=== PATIENT | male | born 1955 | race American Indian/Alaskan Native ===

== ENCOUNTER 2016-09-15 23:27 | Emergency (ER) | payer OTHER ==
[2016-09-16 00:21] LABS: Basophils % (Auto) 0.5 % (0.0-1.8); Eosinophils % (Auto) 1.6 % (0.0-4.3); Mean Corpuscular HGB Conc 31 % (32-34); Mean Corpuscular Volume 73 fl (84-94); Platelet Count 163 K/mm3 (140-440); Red Blood Count 5.57 M/mm3 (3.65-5.03); Red Cell Distribution Width 17.8 % (13.2-15.2); White Blood Count 5.4 K/mm3 (4.5-11.0)
[2016-09-16 00:25] LABS: Hematocrit 40.4 % (35.5-45.6); Hemoglobin 12.4 gm/dl (11.8-15.2); Mean Corpuscular Hemoglobin 22 pg (28-32)
[2016-09-16 00:37] LABS: Anion Gap 17 mmol/L; BUN/Creatinine Ratio 16.66; Blood Urea Nitrogen 10 mg/dL (9-20); Calcium 8.9 mg/dL (8.4-10.2); Carbon Dioxide 26 mmol/L (22-30); Chloride 97.9 mmol/L (98-107); Glucose 112 mg/dL (75-100); Potassium 4.3 mmol/L (3.6-5.0); Sodium 137 mmol/L (137-145)
[2016-09-16 01:49] LABS: Bilirubin,Urine NEG (Negative); Blood,Urine MOD (Negative); Ketones,Urine NEG (Negative); Leukocyte Esterase,Urine NEG (Negative); Nitrite,Urine NEG (Negative); Urobilinogen,Urine < 2.0 mg/dL (<2.0)
[2016-09-16] MEDS ORDERED: CATAPRES PO ONE (01:52)
[2016-09-16] MEDS ORDERED: MORPHINE IV ONE (03:12)
[2016-09-16] MEDS ORDERED: ZOFRAN IV ONE (03:12)
[2016-09-16] MEDS ORDERED: ZOFRAN ONE (03:13)
[2016-09-16] MEDS ORDERED: MORPHINE ONE ×2 (03:14)
[2016-09-16] MEDS ORDERED: NACL ONE (05:21)
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
[2016-09-16] MEDS ORDERED: APRESOLINE IV ONE (06:41)
--- NOTE | 2016-09-16 08:28 | Ultrasound Report ---
ULTRASOUND RENAL INDICATION: Flank pain. COMPARISON: CT from earlier today. FINDINGS: Renal sonography limited due to patient's body habitus, though suggests top normal/borderline increased renal cortical echogenicity. Grossly preserved contours. No hydronephrosis. Few small, subcentimeter bilateral renal cysts/CT hypodensities not visualized sonographically. Slight diffuse imaged hepatic coarsening. RIGHT KIDNEY measures 9.5 x 4.8 x 4.8 cm with cortical thickness of 1.4 cm. LEFT KIDNEY estimated at 9 x 5.3 x 5.6 cm with cortical thickness of 1.5 cm. URINARY BLADDER distention and assessment limited, though grossly unremarkable, in so far seen. CONCLUSION: Slight underlying medical renal disease not excluded sonographically without acute renal abnormality. Please correlate. Thank you for the opportunity to participate in this patient's care.
--- NOTE | 2016-09-16 10:20 | Admit Criteria Form ---
Admission Criteria Documentation: ABDOMINAL PAIN Clinical Indications for Admission to Inpatient Care (Place 'X' for any and all applicable criteria): Admission is indicated for ANY ONE of the following(1)(2)(3)(4)(5): [ X]I. Inpatient admission required rather than observation care (Also use Abdominal Pain: Observation Care, as appropriate) because of ANY ONE of the following: [ ]a) Severe pain requiring acute inpatient management [ ]b) Identification of etiology/finding that requires inpatient care (eg, aortic dissection, free air) [ ]c) Absent bowel sounds with complete ileus(6) [ ]d) Suspected toxic megacolon [ ]e) Severe electrolyte abnormalities requiring inpatient care [ ]f) High fever or infection requiring inpatient admission as indicated by ANY ONE of following(7)(8): [ ] i) Appropriate outpatient or observational care antimicrobial treatment unavailable, not effective, or not feasible [ ] ii) Documented bacteremia [ ] iii) Temperature > 104.9 degrees F (oral) [ ] iv) T >103.1 F (oral) or < 96.8 F(rectal) that does not respond to all emergency treatment measures [ ]g) Signs of intestinal obstruction [B] [ ]h) Hemodynamic instability [ ]i) IV fluid to replace significant ongoing losses (greater than 3 L/m2 per day) (12)(13) [ ]j) Percutaneous or open drainage (eg, abscess, biliary tract ) procedures [ ]k) Parenteral nutrition regimen that must be implemented on inpatient basis [X ]l) Other condition,treatment or monitoring requiring inpatient admission. [ ]II. Peritoneal signs present [ ]III. Surgery needed that cannot be performed on an ambulatory basis. [ ]IV. Evaluation requires patient to not eat or drink for extended period ( eg, more than 24 hours). [ ]V. Contraindications and/or Inappropriate clinical situations for Observational Care in patients with abdominal pain, when ANY ONE of the following is required: [ ]a) Thorough evaluation is required to prevent catastrophic events due to delays in diagnosing (e.g.Mesenteric ischemia) 1,3 [ ]b) Patient with severe pathology or with chronic symptoms unlikely to improve in the ED stay (3) [ ]. General contraindications and/or Inappropriate clinical situations for Observational Care in patients with abdominal pain, when ANY ONE of the following is required: [ ]a) Prediction of prolongation of LOS based on ANY ONE of the following may be considered as a contraindication for observational care 2, 3, 4, 5, 6, 7, 8, 9, 10, 11 [ ]i) Age > 65 yrs. [ ]ii) Patient arriving by ambulance [ ]iii) Patient with high acuity [ ]iv) Patient requiring vital sign monitoring [ ]v) Patient on IV medication [ ]b) Systolic blood pressures 180mmHg 3,12 [ ]c) Patient with altered mental status including delirium and other alteration of consciousness, (3) [ ]d) Patient whose discharge disposition will be to a [facility] home or rehabilitation home should not be managed in Emergency Department Observation Unit. CMS rule requires 3 days hospital stay before such placement.3,13 [ ]e) Patient with failure to thrive due to broad array of etiologies 3,16,17 [ ]f) Inability to ambulate 3,14 Extended stay beyond goal length of stay may be needed for(2)(3): [ ]a) Persistent abdominal pain with suspected intra-abdominal process [ ]b) Diagnosed condition requiring continued stay (e.g., pancreatitis, complicated diverticulitis) [ ]c) Surgery (e.g., colectomy) The original [email or web address] content created by [employer] has been revised. The portions of the content which have been revised are identified through the use of italic text or in bold, and [facility] has neither reviewed nor approved the modified material.All other unmodified content is copyright [email or web address]. Please see references footnoted in the original [email or web address] edition 2016
[2016-09-16] MEDS: VASOTEC IV ONE ×2 (10:54→10:55)
[2016-09-16 11:04] VITALS: BP 210/99
== END 2016-09-16 11:12 | disposition left against medical advice (07) ==
LOC: ED 23:27
DX: R10.30 Lower abdominal pain, unspecified (principal); I10 Essential (primary) hypertension; R00.1 Bradycardia, unspecified
CPT/HCPCS: 36415; 74177; 76770; 80048; 81001; 85025; 96374; 96375; 99284; J0360; J2270; J2405; Q9967

== ENCOUNTER 2019-10-31 10:56 | Emergency (ER) | payer SELFPAY ==
[2019-10-31] MEDS ORDERED: dexAMETHasone 20 MG/5 ML VIAL IV ONE (12:33)
[2019-10-31] MEDS ORDERED: CLINDAMYCIN 600 MG/50 mL 600 MG/50 ML BAG IV ONE (12:34)
--- NOTE | 2019-10-31 12:34 | Event Note ---
ED Screening Note Date of service: 10/31/19 Time: 12:31 ED Screening Note: This is a 64-year-old male presents the ED with right hand swelling and pain that began yesterday. Patient denies injury but states the swelling just began yesterday after he threw out a carpet. This initial assessment/diagnostic orders/clinical plan/treatment(s) is/are subject to change based on patients health status, clinical progression and re- assessment by fellow clinical providers in the ED. Further treatment and workup at subsequent clinical providers discretion. Patient/guardian urged not to elope from the ED as their condition may be serious if not clinically assessed and managed. Initial orders include: X-ray, IV clindamycin, Decadron CC
--- NOTE | 2019-10-31 13:15 | XRay Report ---
RIGHT HAND 2 VIEWS INDICATION / CLINICAL INFORMATION: swelling, pain COMPARISON: None available. FINDINGS: BONES / JOINT(S): No acute fracture or subluxation. There is mild degenerative change in the thumb, s econd, and third MCP joint. There is mild joint space narrowing and osteophyte formation. There is mi ld generative change in several the interphalangeal joints. SOFT TISSUES: No significant abnormality. ADDITIONAL FINDINGS: None. Signer Name: Bulmaro Lester MD Signed: 10/31/2019 1:11 PM Workstation Name: [id number]
[2019-10-31] MEDS ORDERED: KETOROLAC 30 MG/1 ML INJ IM ONE (13:44)
[2019-10-31 14:28] LABS: Basophils # (Auto) 0.1 K/mm3 (0.0-0.1); Basophils % (Auto) 0.9 % (0.0-1.8); Eosinophils # (Auto) 0.1 K/mm3 (0.0-0.4); Eosinophils % (Auto) 1.5 % (0.0-4.3); Hematocrit 33.7 % (35.5-45.6); Hemoglobin 10.3 gm/dl (11.8-15.2); Lymphocytes # (Auto) 1.8 K/mm3 (1.2-5.4); Lymphocytes % (Auto) 23.3 % (13.4-35.0); Mean Corpuscular HGB Conc 31 % (32-34); Mean Corpuscular Volume 84 fl (84-94); Monocytes # (Auto) 0.7 K/mm3 (0.0-0.8); Monocytes % (Auto) 9.5 % (0.0-7.3); Platelet Count 298 K/mm3 (140-440); Red Blood Count 4.03 M/mm3 (3.65-5.03); Red Cell Distribution Width 16.6 % (13.2-15.2)
--- NOTE | 2019-10-31 14:40 | Emergency Department Report ---
ED Upper Extremity Inj HPI - General Chief Complaint: Extremity Problem,Nontraumatic Stated Complaint: BUG BITE Time Seen by Provider: 10/31/19 13:35 Source: patient Mode of arrival: Ambulatory Limitations: No Limitations - History of Present Illness Initial Comments: This is a 64-year-old male nontoxic, well nourished in appearance, no acute signs of distress presents to the ED with c/o of redness and pain with some swelling to right hand. Stated is unsure if something bite him. Patient denies any pus or drainage. Denies decreased ROM. Patient denies any fever, chills, nausea, vomiting, chest pain, shortness of breath, headache or stiff neck. Patient denies any allergies. PMH includes HTN and has missed his dose of lisinopril. MD Complaint: Injury to:: right, hand -: days(s) Other Extremity Injury: Hand: Right Severity scale (0 -10): 8 Improves With: immobilization Worsens With: movement of extremity Associated Symptoms: denies other symptoms. denies: weakness, numbness, neck pain, suspects foreign body, nausea/vomiting, heard/felt popping sensat - Related Data Home Medications Medication Instructions Recorded Confirmed Last Taken Buprenorphine HCl/Naloxone HCl 4 film SL QDAY 09/16/16 09/16/16 Unknown [Suboxone 12 mg-3 mg SL Film] Doxepin [SINEquan] 75 mg PO QHS 09/16/16 09/16/16 09/15/16 Furosemide [Lasix] 20 mg PO QDAY 09/16/16 09/16/16 09/15/16 lisinopriL [Zestril] 5 mg PO QDAY 09/16/16 09/16/16 09/15/16 Previous Rx's Medication Instructions Recorded Last Taken Type Clindamycin [Clindamycin CAP] 300 mg PO Q8H #21 cap 10/31/19 Unknown Rx Naproxen 500 mg PO Q12H PRN #12 tablet 10/31/19 Unknown Rx Allergies Allergy/AdvReac Type Severity Reaction Status Date / Time No Known Allergies Allergy Verified 09/15/16 23:49 ED Review of Systems ROS: Stated complaint: BUG BITE Other details as noted in HPI Constitutional: denies: chills, fever Eyes: denies: eye pain, eye discharge, vision change ENT: denies: ear pain, throat pain Respiratory: denies: cough, shortness of breath, wheezing Cardiovascular: denies: chest pain, palpitations Endocrine: no symptoms reported Gastrointestinal: denies: abdominal pain, nausea, diarrhea Genitourinary: denies: urgency, dysuria Musculoskeletal: denies: back pain, joint swelling, arthralgia Skin: denies: rash, lesions Neurological: denies: headache, weakness, paresthesias Psychiatric: denies: anxiety, depression Hematological/Lymphatic: denies: easy bleeding, easy bruising ED Past Medical Hx - Past Medical History Previous Medical History?: Yes Hx Hypertension: Yes Additional medical history: RIGHT KIDNEY - Surgical History Past Surgical History?: Yes Additional Surgical History: RIGHT KNEE / HEART STENT - Social History Smoking Status: Current Every Day Smoker Substance Use Type: None - Medications Home Medications: Home Medications Medication Instructions Recorded Confirmed Last Taken Type Buprenorphine HCl/Naloxone HCl 4 film SL QDAY 09/16/16 09/16/16 Unknown History [Suboxone 12 mg-3 mg SL Film] Doxepin [SINEquan] 75 mg PO QHS 09/16/16 09/16/16 09/15/16 History Furosemide [Lasix] 20 mg PO QDAY 09/16/16 09/16/16 09/15/16 History lisinopriL [Zestril] 5 mg PO QDAY 09/16/16 09/16/16 09/15/16 History Clindamycin [Clindamycin CAP] 300 mg PO Q8H #21 cap 10/31/19 Unknown Rx Naproxen 500 mg PO Q12H PRN #12 tablet 10/31/19 Unknown Rx ED Physical Exam - General Limitations: No Limitations General appearance: alert, in no apparent distress - Head Head exam: Present: atraumatic, normocephalic - Neck Neck exam: Present: normal inspection, full ROM. Absent: tenderness, meningismus, lymphadenopathy - Extremities Exam Extremities exam: Present: normal inspection, full ROM, tenderness, normal capillary refill. Absent: joint swelling - Expanded Upper Extremity Exam Right General: Present: normal inspection Shoulder Exam: Present: normal inspection, full ROM. Absent: tenderness, swelling Upper Arm exam: Present: normal inspection, full ROM. Absent: tenderness, swel ling Elbow exam: Present: normal inspection, full ROM. Absent: tenderness, swelling Forearm Wrist exam: Present: normal inspection, full ROM. Absent: tenderness, swelling Hand Wrist exam: Present: normal inspection, full ROM, tenderness, swelling, erythema. Absent: abrasion, laceration, ecchymosis, deformity, crepidus, d islocation, amputation, nail avulsion, subungual hematoma Vascular: Present: normal capillary refill. Absent: vascular compromise (Neurovascular within normal limits) - Back Exam Back exam: Present: normal inspection, full ROM - Neurological Exam Neurological exam: Present: alert, oriented X3, normal gait - Psychiatric Psychiatric exam: Present: normal affect, normal mood - Skin Skin exam: Present: warm, dry, intact, normal color. Absent: rash ED Course Vital Signs 10/31/19 10/31/19 11:02 14:42 Temperature 98.1 F Pulse Rate 76 Respiratory 20 18 Rate Blood Pressure 192/108 O2 Sat by Pulse 98 Oximetry - Reevaluation(s) Reevaluation #1: 10/31/19 14:39 Patient is speaking in full sentences with no signs of distress noted. ED Medical Decision Making - Lab Data Result diagrams: 10/31/19 13:49 10/31/19 15:08 Lab Results 10/31/19 10/31/19 Range/Units 13:49 15:08 WBC 7.5 (4.5-11.0) K/mm3 RBC 4.03 (3.65-5.03) M/mm3 Hgb 10.3 L (11.8-15.2) gm/dl Hct 33.7 L (35.5-45.6) % MCV 84 (84-94) fl MCH 26 L (28-32) pg MCHC 31 L (32-34) % RDW 16.6 H (13.2-15.2) % Plt Count 298 (140-440) K/mm3 Lymph % (Auto) 23.3 (13.4-35.0) % Hendry % (Auto) 9.5 H (0.0-7.3) % Eos % (Auto) 1.5 (0.0-4.3) % Baso % (Auto) 0.9 (0.0-1.8) % Lymph # 1.8 (1.2-5.4) K/mm3 Hendry # 0.7 (0.0-0.8) K/mm3 Eos # 0.1 (0.0-0.4) K/mm3 Baso # 0.1 (0.0-0.1) K/mm3 Seg Neutrophils % 64.8 (40.0-70.0) % Seg Neutrophils # 4.9 (1.8-7.7) K/mm3 Sodium 138 (137-145) mmol/L Potassium 3.9 (3.6-5.0) mmol/L Chloride 102.6 (98-107) mmol/L Carbon Dioxide 24 (22-30) mmol/L Anion Gap 15 mmol/L BUN 11 (9-20) mg/dL Creatinine 0.6 L (0.8-1.5) mg/dL Estimated GFR > 60 ml/min BUN/Creatinine Ratio 18 % Glucose 103 H (75-100) mg/dL Uric Acid 4.8 (3.5-7.6) mg/dL Calcium 9.5 (8.4-10.2) mg/dL - Radiology Data Referring Physician: MIREYA GARZA Patient Name: PETER STEWART Date of : 1955 Sex: Male Report Date: 2019-10-31 Report Status: Finalized [facility] [address] [place] [address] X Ray Report Signed Patient: PETER STEWART MR#: [id number] : 1955 Acct:[id number] Age/Sex: 64 / M ADM Date: 10/31/19 Loc: ED Attending Dr: Ordering Physician: GIFTY PARIS Date of Service: 10/31/19 Procedure(s): XR hand 2V RT Accession Number(s): [id number] cc: GIFTY PARIS Fluoro Time In Minutes: RIGHT HAND 2 VIEWS INDICATION / CLINICAL INFORMATION: swelling, pain COMPARISON: None available. FINDINGS: BONES / JOINT(S): No acute fracture or subluxation. There is mild degenerative change in the thumb, second, and third MCP joint. There is mild joint space narrowing and osteophyte formation. There is mild generative change in several the interphalangeal joints. SOFT TISSUES: No significant abnormality. ADDITIONAL FINDINGS: None. Signer Name: Bulmaro Lester MD Signed: 10/31/2019 1:11 PM Workstation Name: [id number] Transcribed By: SS Dictated By: Bulmaro Lester MD Electronically Authenticated By: Bulmaro Lester MD Signed Date/Time: 10/31/19 1311 DD/DT: 0 10/31/190 TD/TT: - Medical Decision Making This is a 64-year-old male that presents with cellulitis. Patient is stable and was examined by me. There is no induration, fluctuance. No signs of abscess formation. The area has been outlined with a permanent marker and patient was instructed to observe symptoms of increased redness or swelling and to return to the ER if this does occur. I will discharge patient with Clinda. Patient was referred to Follow-up with a primary care doctor in 3-5 days or if symptoms worsen and continue return to emergency room as soon as possible. At time of discharge, the patient does not seem toxic or ill in appearance. No acute signs of distress noted. Patient agrees to discharge treatment plan of care. No further questions noted by the patient. Blood pressure corrected with Catapres 0.1 mg. Patient stated he still has lisinopril. According to ACEP: (1) in ED patients with asymptomatic markedly elevated blood pressure, routine screening for acute target organ injury (eg, serum creatinine, urinalysis, ECG) is not required. (1) In patients with asymptomatic markedly elevated blood pressure, routine ED medical intervention is not required. - Differential Diagnosis Cellulitis, abscess, gout, septic joint Critical care attestation.: If time is entered above; I have spent that time in minutes in the direct care of this critically ill patient, excluding procedure time. ED Disposition Clinical Impression: Cellulitis Qualifiers: Site of cellulitis: extremity Site of cellulitis of extremity: upper extremity Laterality: right Qualified Code(s): L03.113 - Cellulitis of right upper limb Disposition: DC-01 TO HOME OR SELFCARE Is pt being admited?: No Does the pt Need Aspirin: No Condition: Stable Instructions: Cellulitis (ED) Additional Instructions: Follow-up with a primary care doctor in 3-5 days or if symptoms worsen and continue return to emergency room as soon as possible. Prescriptions: Clindamycin [Clindamycin CAP] 300 mg PO Q8H #21 cap Naproxen 500 mg PO Q12H PRN #12 tablet PRN Reason: Pain , Severe (7-10) Referrals: PRIMARY CAREMD [Primary Care Provider] - 3-5 Days TRISTON HERNANDEZ MD [Staff Physician] - 3-5 Days
[2019-10-31 15:39] LABS: BUN/Creatinine Ratio 18; Blood Urea Nitrogen 11 mg/dL (9-20); Calcium 9.5 mg/dL (8.4-10.2); Hemolysis Index 11; Uric Acid 4.8 mg/dL (3.5-7.6)
[2019-10-31] MEDS ORDERED: cloNIDine 0.1 MG TAB PO ONE (16:39)
[2019-10-31 17:39] VITALS: BP 164/102
== END 2019-10-31 17:41 | disposition home or self-care (01) ==
LOC: ED 10:56
DX: L03.113 Cellulitis of right upper limb (principal); I10 Essential (primary) hypertension; F17.200 Nicotine dependence, unspecified, uncomplicated
CPT/HCPCS: 36415; 73120; 80048; 84550; 85025; 96365; 96372; 96375; 99284; J1100; J1885

== ENCOUNTER 2020-07-29 17:47 | Emergency (ER) | payer MEDICARE | END 2020-07-29 19:30 | disposition left against medical advice (07) | LOC: ED 17:47 | DX: M25.569 Pain in unspecified knee (principal); Z53.21 Procedure and treatment not carried out due to patient leaving prior to being seen by health care provider ==

== ENCOUNTER 2020-09-01 19:47 | Emergency (ER) | payer MEDICARE | END 2020-09-02 00:30 | disposition left against medical advice (07) | LOC: ED 19:47 | DX: M79.89 Other specified soft tissue disorders (principal); Z53.21 Procedure and treatment not carried out due to patient leaving prior to being seen by health care provider ==